=== PATIENT | male | born 1995 | race Caucasian/White ===

== ENCOUNTER 2019-03-10 07:39 | Outpatient (RCR) | payer BC, SELFPAY ==
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
--- NOTE | 2019-05-28 12:43 | PCPTNOTE ---
Pt. has failed to return to the clinic. Refer to last daily note for pt. discharge status.
== END 2019-03-18 08:18 | disposition home or self-care (01) ==
LOC: CHSPT 07:39
PROVIDERS: Visit Provider Family Medicine
DX: S72.353A Displaced comminuted fracture of shaft of unspecified femur, initial encounter for closed fracture (principal)
CPT/HCPCS: 97110; 97116; 97161; 97530